=== PATIENT | male | born 1945 | race Caucasian/White ===

== ENCOUNTER 2020-10-24 03:22 | Emergency (ER) | payer OTHER ==
[2020-10-24 07:13] LABS: HEMOGLOBIN 14.7 gm/dl (14.0-17.5); RED BLOOD COUNT 4.53 M/UL (4.20-5.50); WHITE BLOOD COUNT 12.8 K/UL (4.5-11.0)
[2020-10-24 07:31] LABS: BUN/CREATININE RATIO 44 (0-10)
== END 2020-10-24 09:01 | disposition home or self-care (01) ==
LOC: ER1 03:22
PROVIDERS: Physician Assistant Medical
DX: R04.0 Epistaxis (principal); E78.5 Hyperlipidemia, unspecified; Z88.0 Allergy status to penicillin; Z79.01 Long term (current) use of anticoagulants; F17.200 Nicotine dependence, unspecified, uncomplicated
CPT/HCPCS: 80053; 85025; 85610; 99283